=== PATIENT | male | born 1960 | race Caucasian/White ===

== ENCOUNTER 2019-07-28 22:56 | Emergency (ER) | payer BC, MEDICAID ==
[~2019-07-28] VITALS: Ht 170.2 cm; Wt 99.3 kg
--- NOTE | 2019-07-28 23:23 | NUR ---
Patient ambulated with stable gait. A/Ox4. Speech clear, speaks in complete sentences. Patient came for c/o left eye floaters for about a week now. Respiratory even and unlabored, no cough no sob. No cardiovascular distress noted.
[2019-07-29] MEDS ORDERED: FLUORESCEIN SODIUM 1 MG STRIP ONE (00:05)
[2019-07-29] MEDS ORDERED: TETRACAINE HCL 0.5% OPHT DROP 2 ML BOTTLE ONE (00:05)
[2019-07-29] MEDS ORDERED: TETRACAINE HCL 0.5% OPHT DROP 2 ML BOTTLE OP ONE (00:15)
[2019-07-29] MEDS ORDERED: FLUORESCEIN SODIUM 1 MG STRIP OP ONE (00:15)
--- NOTE | 2019-07-29 00:21 | NUR ---
Left phone call for Dr. Simeon and Dr. Mcbride. Awaiting call back.
[2019-07-29 00:39] LABS: BASOPHILS % (AUTO) 0.5 % (0.0-2.0); EOSINOPHILS # (AUTO) 0.2 K/uL (0.0-0.7); EOSINOPHILS % (AUTO) 2.6 % (0.0-7.0); HEMATOCRIT 38.8 % (36.7-47.1); HEMOGLOBIN 12.7 g/dL (12.5-16.3); LYMPHOCYTES # (AUTO) 3.4 K/uL (20.0-40.0); LYMPHOCYTES % (AUTO) 45.9 % (20.5-51.5); MEAN CORPUSCULAR HEMOGLOBIN 27.8 uug (23.8-33.4); MEAN CORPUSCULAR HGB CONC 33 g/dL (32.5-36.3); MEAN CORPUSCULAR VOLUME 84.7 fL (73.0-96.2); MONOCYTES # (AUTO) 0.5 K/uL (2.0-10.0); MONOCYTES % (AUTO) 6.2 % (0.0-11.0); NEUTROPHILS # (AUTO) 3.3 K/uL (1.8-8.9); NEUTROPHILS % (AUTO) 44.8 % (38.5-71.5); PLATELET COUNT (AUTO) 221 K/uL (152-348); RED BLOOD CELL COUNT(AUTO) 4.58 MIL/uL (4.06-5.63); WHITE BLOOD COUNT (AUTO) 7.4 K/uL (3.6-10.2)
[2019-07-29 00:48] LABS: CARBON DIOXIDE 31 mmol/L (21-32); CHLORIDE 102 mmol/L (98-107); CREATININE 0.9 mg/dL (0.6-1.3); GLUCOSE 109 mg/dL (74-106); POTASSIUM 3.5 mmol/L (3.5-5.1); UREA NITROGEN, BLOOD 17 mg/dL (7-18)
[2019-07-29 00:54] LABS: ALANINE AMINOTRANSFERASE 19 U/L (16-63); ALKALINE PHOSPHATASE 85 U/L (50-136); ASPARTATE AMINOTRANSFERASE 14 U/L (15-37); BILIRUBIN,DIRECT < 0.1 mg/dL (0.0-0.2); BILIRUBIN,TOTAL 0.2 mg/dL (0.2-1.0); TOTAL PROTEIN, SERUM 7.1 g/dL (6.4-8.2)
[2019-07-29] MEDS ORDERED: BUPR1FIL3 SL (01:02)
[2019-07-29] MEDS ORDERED: FOLI1TAB16 PO (01:02)
[2019-07-29] MEDS ORDERED: TAMS-3 PO (01:02)
[2019-07-29] MEDS ORDERED: RANI150C4 PO (01:02)
[2019-07-29] MEDS ORDERED: METF-440 PO (01:02)
[2019-07-29] MEDS ORDERED: bupropion PO (01:02)
[2019-07-29] MEDS ORDERED: GABA600T12 PO (01:02)
[2019-07-29] MEDS ORDERED: NAPR-1009 PO (01:02)
[2019-07-29] MEDS ORDERED: FURO-152 PO (01:02)
[2019-07-29] MEDS ORDERED: ALBU18HF2 IH (01:02)
[2019-07-29] MEDS ORDERED: ASPI-605 PO (01:02)
[2019-07-29] MEDS ORDERED: ATOR40TA PO (01:02)
[2019-07-29] MEDS ORDERED: LISI10TA5 PO (01:02)
[2019-07-29] MEDS ORDERED: THIA100T13 PO (01:02)
[2019-07-29] MEDS ORDERED: PARO40TA4 PO (01:02)
--- NOTE | 2019-07-29 01:12 | NUR ---
Patient in bed resting with eyes closed. NAD
--- NOTE | 2019-07-29 02:08 | NUR ---
CALLED [facility],SPOKE RICH. UNABLE TO ACCEPT AT THIS TIME.
--- NOTE | 2019-07-29 02:10 | NUR ---
Called [facility] and spoke to nursing gate supervisor, they stated that they do not have Opthamology health and wellness sales consultant.
--- NOTE | 2019-07-29 02:11 | NUR ---
CALLED [facility]. SPOKE TO RESHMA, RESHMA WILL RETURN CALL IF ABLE TO ACCEPT PATIENT.
--- NOTE | 2019-07-29 02:16 | NUR ---
CALLED [facility]. UNABLE TO ACCEPT PATIENT AT THIS TIME.
--- NOTE | 2019-07-29 02:28 | NUR ---
CALLED [facility] FOR CONSULT. WAITING FOR CALL BACK.
--- NOTE | 2019-07-29 02:28 | NUR ---
Left message with Dr. Villasenor's voicemail system. Awaiting call back.
--- NOTE | 2019-07-29 02:32 | NUR ---
RADHA on the line with Dr. Villasenor
--- NOTE | 2019-07-29 02:44 | NUR ---
CALL [facility] FOR POSSIBLE TRANSFER. NO OPHTHALMOLOGY AVAILABLE.
--- NOTE | 2019-07-29 03:54 | NUR ---
CALLED [facility] SPOKE WITH NURSING BUTTON BRADDER [employer]. REQUESTING TO FAX FACESHEET AND CLINICALS TO
--- NOTE | 2019-07-29 04:08 | NUR ---
RESHMA FROM [facility] CALLED BACK. REQUESTING TO FAX FACESHEET TO
[2019-07-29] MEDS ORDERED: BUPRENORPHINE HCL 2 MG TAB.SUBL SL ONE (05:15)
--- NOTE | 2019-07-29 05:23 | NUR ---
According to nursing supervisor dental laboratory, subutex is not stocked at our hospital. RADHA made aware.
--- NOTE | 2019-07-29 05:40 | NUR ---
F/U with [facility] transfer center and they said that they cannot make any decisions right now. They have been trying to get a hold of ophtahmology, no call back yet.
--- NOTE | 2019-07-29 05:43 | NUR ---
Consuelo Rodriguez from [facility], . Fax number [phone]. Face sheet and clinicals faxed over.
--- NOTE | 2019-07-29 06:16 | NUR ---
RADHA on the phone with Danuta from [facility].
--- NOTE | 2019-07-29 06:20 | NUR ---
[facility] called back regarding patient case. Patient will have an outpatient appt with Dr. Rajput at 745am and will be discharged from our ER.
--- NOTE | 2019-07-29 06:38 | NUR ---
Patient given written and verbal discharge instructions. Patient verbalizes understanding of instructions. Patient is ambulatory with steady gait. Refuses offer of alf placement. Patient given list of available shelters in surrounding area. Patient ambulated with stable gait.
== END 2019-07-29 06:40 | disposition home or self-care (01) ==
LOC: ER 22:56
DX: H43.392 Other vitreous opacities, left eye (principal); E78.5 Hyperlipidemia, unspecified; J45.909 Unspecified asthma, uncomplicated; E11.9 Type 2 diabetes mellitus without complications; F17.200 Nicotine dependence, unspecified, uncomplicated; F11.10 Opioid abuse, uncomplicated; F15.10 Other stimulant abuse, uncomplicated; Z59.0 Homelessness; Z79.82 Long term (current) use of aspirin; Z79.899 Other long term (current) drug therapy
CPT/HCPCS: 36415; 85025; A4663